=== PATIENT | male | born 1950 | race Caucasian/White ===

== ENCOUNTER 2017-02-27 16:02 | Emergency (ER) | payer MEDICARE ==
[~2017-02-27] VITALS: Ht 190.5 cm; Wt 97.5 kg
--- NOTE | 2017-02-27 17:11 | Diagnostic Imaging Report ---
PROCEDURE: Frontal and lateral views of the chest. COMPARISON: None. INDICATIONS: FLU LIKE SYMPTOMS FINDINGS: Lines/tubes: None. Lungs: Retrocardiac hazy opacification. Mildly elevated right hemidiaphragm. Pleura: There is no pleural effusion or pneumothorax. Heart and mediastinum: The heart and the mediastinum are normal. Bones: No acute bony abnormality. IMPRESSION: Retrocardiac hazy opacification representing atelectasis and/or developing pneumonia. Dictated by: Rm Aguirre M.D. on 02/27/2017 at 17:20 Electronically approved by: Rm Aguirre M.D. on 02/27/2017 at 17:20
[2017-02-27] MEDS ORDERED: LEVOFLOXACIN 750MG/D5W 150ML 150 ML IV STA (19:38)
[2017-02-27] MEDS ORDERED: LEVOFLOXACIN 750MG/D5W 150ML 150 ML IV ONE (19:45)
[2017-02-27] MEDS ORDERED: SODIUM CHLORIDE 0.9% 1000ML 1,000 ML IV ONE (19:45)
[2017-02-27] MEDS ORDERED: SODIUM CHLORIDE 0.9% 1000ML 1,000 ML ONE (19:45)
[2017-02-27 20:43] LABS: BASOPHILS % 0.7 % (0.0-1.0); HEMATOCRIT 48.4 % (38.2-49.6); HEMOGLOBIN 16.3 g/dL (14.0-18.0); LYMPHOCYTES # (AUTO) 0.4 (1.0-3.2); LYMPHOCYTES % 6.6 % (18.0-39.1); MEAN CORPUSCULAR HEMOGLOBIN 28.9 pg (28-32); MEAN CORPUSCULAR HGB CONC 33.7 g/dL (31-35); MEAN CORPUSCULAR VOLUME 85.8 fL (81-99); MONOCYTES # (AUTO) 0.8 (0.2-0.8); MONOCYTES % 13.8 % (4.4-11.3); NEUTROPHILS # (AUTO) 4.7 (2.1-6.9); NEUTROPHILS % 78.4 % (38.7-80.0); PLATELET COUNT 188 x10e3/uL (140-360); RED BLOOD COUNT 5.64 x10e6/uL (4.3-5.7); RED CELL DISTRIBUTION WIDTH 14.4 % (11.7-14.4)
[2017-02-27 21:00] LABS: ALBUMIN 4.1 g/dL (3.5-5.0); ALBUMIN/GLOBULIN RATIO 0.9 (0.8-2.0); ANION GAP 19.4 mmol/L (8-16); CALCIUM 9.6 mg/dL (8.4-10.2); CREATININE, SERUM 1.34 mg/dL (0.72-1.25); POTASSIUM 4.4 mmol/L (3.5-5.1)
[2017-02-27 21:07] LABS: CREATINE KINASE MB 0.3 ng/mL (0.00-5.00); TROPONIN I 0.011 ng/mL (0-0.300)
[2017-02-27 23:25] VITALS: BP 141/68
== END 2017-02-27 23:28 | disposition home or self-care (01) ==
LOC: ER 16:02
DX: J15.9 Unspecified bacterial pneumonia (principal); E87.1 Hypo-osmolality and hyponatremia
CPT/HCPCS: 36415; 71020; 80053; 82550; 82553; 83605; 84484; 85025; 87040; 87400; 96360; 96365; 99283; J7030